=== PATIENT | female | born 1995 | race Caucasian/White ===

== ENCOUNTER 2022-12-09 09:48 | Emergency (ER) | payer OTHER, SELFPAY ==
--- NOTE | ~2022-12-09 | XR_ITS ---
EXAMINATION: XR ankle LT min 3V DATE: 12/09/2022 10:13 INDICATION: Left ankle pain, initial encounter TECHNIQUE: Anteroposterior, lateral, mortise, and additional oblique view of the ankle were obtained. COMPARISON: 06/20/2011 FINDINGS: There is an acute, traumatic, closed, oblique fracture of the distal fibula which extends t o the level of the tibial plafond. There is adjacent soft tissue swelling of ankle. There appears to be a chronic avulsion injury of the medial malleolus. No additional acute fracture is identified. IMPRESSION: 1. Acute oblique fracture of the distal fibula extending to the level of the tibial plafond. Reviewed, dictated and finalized at location A. IMPRESSION: 1. Acute oblique fracture of the distal fibula extending to the level of the ti bial plafond.
--- NOTE | ~2022-12-09 | XR_ITS ---
EXAMINATION: XR foot LT min 3V DATE: 12/09/2022 10:13 INDICATION: Left foot pain TECHNIQUE: Dorsoplantar, lateral, and 2 oblique views of the left foot were obtained. COMPARISON: None. FINDINGS: There is an acute, traumatic, closed, oblique fracture of the distal fibula extending to th e level of the tibial plafond. No acute fracture of the foot is identified. The joint spaces are main tained. There is lateral soft tissue swelling of ankle. IMPRESSION: 1. No acute osseous abnormality of the foot. 2. Distal fibular fracture. Reviewed, dictated and finalized at location A.
[2022-12-09 09:59] VITALS: BP 138/86; PULSE 92; RESP 16; TEMP 36.8; O2SAT 99
--- NOTE | 2022-12-09 10:19 | ED.LOWEXIN ---
HPI - Extremity Injury (Lower) General Chief Complaint: Extremity Injury, Lower Stated Complaint: INJURED L ANKLE Time Seen by Provider: 12/09/22 10:10 Source: patient, RN notes reviewed and old records reviewed Mode of arrival: ambulatory Limitations: no limitations History of Present Illness HPI Narrative: 27 year old female who presents to express care with complaints of trying to get off of boat to get into water and fell onto her left ankle and felt a pop with pain and swelling to the lateral aspect of her left ankle and along the lateral foot near base of 5th metatarsal. Patient reports that she played volleyball in high school and she has had severe sprains to that same ankle previously. Patient did take Tylenol 1000mg today at 0900 for her discomfort. Patient has strong left pedal pulse with no complaints of tingling or numbness, foot is warm and pink. complaint: ankle injury (left) Onset (ago): day(s) (1) Injury: Left: ankle Place: other (getting off back of boat fell) Severity scale (1-10): 5 Exacerbating factors: weight bearing Associated symptoms: snap/pop sensation, swelling and able to partially bear weight Treatments prior to arrival: other (Tylenol) Related Data Home Medications Medication Instructions Recorded Confirmed No Home Medications 12/09/22 12/09/22 Allergies Allergy/AdvReac Type Severity Reaction Status Date / Time No Known Allergies Allergy Verified 12/09/22 09:57 Review of Systems Review of Systems: CONSTITUTIONAL: Denies fever, chills, or sweats. EYES: Denies visual changes, redness, or discharge. ENT: Denies rhinorrhea, congestion, sore throat, or otalgia CARDIOVASCULAR: Denies chest pain, palpitations, or edema. RESPIRATORY: Denies cough or dyspnea. GASTROINTESTINAL: Denies abdominal pain, nausea, vomiting, or diarrhea. GENITOURINARY: Denies dysuria or hematuria. SKIN: Denies rash or itching. MUSCULOSKELETAL: Denies back pain,positive for left ankle joint pain and some lateral foot discomfort, or myalgia. NEUROLOGIC: Denies headache, numbness, or weakness. PSYCHIATRIC: Denies anxiety or depression. All systems reviewed & are unremarkable except as noted in HPI and below PMFSH Past Medical History Medical History (Updated 12/09/22 @ 13:24 by Dominique Lovell NP) Left ankle sprain Social History Social History (Updated 12/09/22 @ 11:13 by Dominique Lovell NP) Smoking status: Never smoker Alcohol intake: current Alcohol use details: social Substance use type: does not use Living arrangements: with family Gender identity (if verbalized by the patient): Female Comments At time of signature, agree with nursing past medical, surgical, social and family history. There is no relevant family history pertinent to the presenting complaint Exam Narrative: GENERAL: Well-appearing, well-nourished, and in no acute distress. HEAD: Normocephalic, atraumatic. EYES: PERRLA and EOMI. ENT: Nares clear, no rhinorrhea or epistaxis. Mucous membranes moist. NECK: Supple.no lymphadenopathy CHEST: Clear to auscultation. No respiratory distress.SAO2 99% on room air HEART: Regular rate and rhythm. No murmur heard. Normal peripheral pulses. ABDOMEN: Soft, nontender, nondistended, normal active bowel sounds. EXTREMITIES: Normal range of motion. Positive for pain and edema to lateral left ankle from injury and some discomfort to lateral left foot near base of 5th metatarsal, adequate circulation and sensation to left foot, painful with any movement and attempts at weight-bearing. SKIN: Warm, dry, no rash. NEURO: No focal deficits. Alert and oriented x3. Course Course Emergency Course: Patient is aware of diagnosis, understands and agrees to treatment plan.? Anticipatory guidance given.? Patient agrees to follow-up as directed and is aware of reasons to seek care at the emergency department. Portions of this record may have been created with voice recognition software Level o
== END 2022-12-09 11:02 | disposition home or self-care (01) ==
PROVIDERS: Emergency Provider Registered Nurse
DX: S82.832A Other fracture of upper and lower end of left fibula, initial encounter for closed fracture (principal); V93.39XA Fall on board unspecified watercraft, initial encounter
CPT/HCPCS: 29515; 73610; 73630; 99204; G0463